=== PATIENT | male | born 1965 | race Caucasian/White ===

== ENCOUNTER 2020-12-04 16:48 | Emergency (ER) | payer OTHER, SELFPAY ==
[2020-12-04 16:50] VITALS: BP 96/60; PULSE 75; RESP 22; TEMP 36.3; O2SAT 94; BMI 32.3
[2020-12-04 17:13] VITALS: BP 96/60; PULSE 75; RESP 18; TEMP 36.3; O2SAT 97
[2020-12-04 17:14] VITALS: O2SAT 97
--- NOTE | 2020-12-04 17:15 | RAD_ITS ---
STUDY: X-RAY CHEST REASON FOR EXAM: Male, 55 years old. COVID. Shortness of breath, cough and dizziness. TECHNIQUE: Single AP portable view of the chest. COMPARISON: None. FINDINGS: The lungs are clear and expanded. There is no demonstrated pleural abnormality. Normal size heart. Normal mediastinum and alisia. Normal visualized pulmonary arteries. Normal visualized aortic arch and descending thoracic aorta. Normal visualized thoracic spine. There is degenerative osteoarthritis of the bilateral shoulders. There is no demonstrated abnormality of the visualized soft tissue structures of the upper abdomen. RAD/Chest 1 View (Portable) IMPRESSION: No acute cardiopulmonary disease. Electronically Signed: Stewart Peoples DO at 17:36 EDT Tel [phone], Service support ,
--- NOTE | 2020-12-04 17:59 | EDS_ITS ---
HPI History of Present Illness Chief Complaint: Cough Narrative Narrative: Patient presenting for evaluation secondary to concerns of coronavirus. Patient states that he is on day 6 of a coronavirus infection. Patient states that he does not have any underlying history of lung disease or comorbid conditions. He states that is been associated with fevers chills cough shortness of breath and some dry heaves. Patient was concerned because he was monitoring his pulse ox at home and it was in the high 80s low 90s, so he is presenting to the emergency department currently. He denies any chest pain denies any hemoptysis. Review of systems otherwise negative. PFSH PFSH Home Medications ondansetron 4 mg PO Q8H PRN PRN #10 tab 12/04/20 [Rx Last Taken Unknown] Allergy/AdvReac Type Severity Reaction Status Date / Time No Known Allergies Allergy Verified 12/04/20 16:49 Social History Smoking Status: Former smoker ROS ROS ED Constitutional Constitutional ED: Reports chills and fever(s) ENT ENT ED: Denies rhinorrhea Cardiovascular Cardiovascular: Denies chest pain Respiratory/Chest Respiratory/Chest: Reports cough and dyspnea Gastrointestinal Gastrointestinal: Reports nausea and vomiting Genitourinary Genitourinary ED: Denies dysuria or hematuria Musculoskeletal Musculoskeletal: Denies back pain Integumentary Denies rash Neurologic Neurologic: Denies paresthesias or weakness Psychiatric Psychiatric: Denies depression Endocrine Endocrinology: Denies fatigue Allergic/Immunologic Allergic/Immunologic ED: Denies urticaria EXAM Physical Exam Const Vital Signs: 12/04/20 16:50 12/04/20 17:13 12/04/20 17:14 Temperature 97.4 F L 97.4 F L Temperature Source Temporal Temporal Pulse Rate 75 75 Respiratory Rate 22 H 18 Respiratory Effort Normal Non-Labored Respiratory Depth Normal Respiratory Pattern Normal Blood Pressure 96/60 96/60 Blood Pressure Mean 72 72 Pulse Ox 94 97 Oxygen Delivery Method Room Air Room Air Room Air Positive well nourished and well developed General Appearance ED: well developed and NAD HEENT Reports moist mucous membranes Negative for trauma or tenderness Eyes EOMs intact bilaterally Neck no lymphadenopathy, supple and no JVD Chest Wall inspection of chest normal Resp normal respiratory effort and clear to auscultation bilaterally Cardio regular rate, regular rhythm, no murmurs and peripheral pulses 2+ throughout GI normal to inspection, nondistended, normoactive bowel sounds, non-tender and no masses Palpation: soft Back/Spine normal to inspection Extremity normal to inspection General Extremety ED: Negative for tenderness Neuro oriented x3 and no sensory deficits noted Sensorium / Orientation: alert Motor Exam: strength 5/5 throughout Psych mental status grossly normal Skin no rashes or lesions noted MDM MDM MDM Narrative Medical decision making narrative: Patient presenting due to concerns for coronavirus. Patient's triage blood pressure was 96/60 I was in his room any had multiple BPs with systolics of 115. His pulse ox has remained in the mid to high 90s throughout his stay in the emergency department. His chest x-ray by my personal review shows bilateral infiltrates consistent with coronavirus. Patient at this point does not require admission and does not meet monoclonal antibody infusion recommendations or require any medical treatment. He was g iven expectant management measures. Patient was discharged in stable condition. Radiography Chest X-Ray - ED: Read by ED Physician, Right Infiltrate and Left Infiltrate Diagnostic Testing: Radiology Impression Chest X-Ray 12/04/20 17:15 IMPRESSION: No acute cardiopulmonary disease. Electronically Signed: Stewart Peoples DO at 17:36 EDT Tel [phone], Service support , Discharge Plan Triage Chief Complaint: Cough ED Provider: Petros Horner Dx/Rx/DC Orders Clinical Impression: COVID Prescriptions: New ondansetron 4 mg tablet,disintegrating 4 mg PO Q8H PRN PRN (Reason: Nausea) Qty: 10 RF: 0 Primary Care Provider: Care Physician,No Primary Referrals: Care Physician,No Primary [Primary Care Provider] - Activity Restrictions/Additional Instructions: Return for low pulse ox or worsening symptoms Disposition Disposition: Home, Self Care
[2020-12-04 18:09] VITALS: BP 127/66; PULSE 71; RESP 16; O2SAT 97
== END 2020-12-04 18:24 | disposition home or self-care (01) ==
LOC: ED 18:05
PROVIDERS: Emergency Provider Emergency Medicine
DX: U07.1 COVID-19 (principal); Z87.891 Personal history of nicotine dependence
CPT/HCPCS: 71045; 99282

== ENCOUNTER 2020-12-07 14:53 | Inpatient (IN) | payer OTHER, SELFPAY ==
[2020-12-07] VITALS (9 sets, daily range): BP systolic 97–130; BP diastolic 53–74; PULSE 70–86; RESP 20–28; TEMP 36.2–37.5; O2SAT 70–99; BMI 35.2; BMI 32.6
--- NOTE | 2020-12-07 14:55 | EKG12_ITS ---
Test Reason : SOB Blood Pressure : / mmHG Vent. Rate : 080 BPM Atrial Rate : 080 BPM P-R Int : 120 ms QRS Dur : 090 ms QT Int : 358 ms P-R-T Axes : 028 051 016 degrees QTc Int : 412 ms Normal sinus rhythm Normal ECG Confirmed by IDANIA BENJAMIN, EDUARD ([id number]), film editor supervisor KUN ESPINAL ([id number]) on 12/10/2020 12:46:32 PM Referred By: BEA Confirmed By:EDUARD EMERSON MD
--- NOTE | 2020-12-07 15:25 | RAD_ITS ---
STUDY: X-RAY CHEST REASON FOR EXAM: Male, 55 years old. Cough TECHNIQUE: Single AP portable view of the chest. COMPARISON: Comparison is made with prior study 12/04/2020. FINDINGS: EKG electrodes are seen. There now is evidence of lateral pulmonary infiltrates worse in the lower lobes. Follow-up is recommended. There is no demonstrated pleural abnormality. Normal size heart. Normal mediastinum and alisia. Normal visualized pulmonary arteries. Normal visualized aortic arch and descending thoracic aorta. There are diffuse degenerative changes of the visualized thoracic spine. Normal visualized ribs, clavicles, and shoulders. There is no demonstrated abnormality of the visualized soft tissue structures of the upper abdomen. RAD/Chest 1 View (Portable) IMPRESSION: Bilateral pulmonary infiltrates worse in the lower lobes. Electronically Signed: Quinton Choi MD at 15:39 EDT , Service support ,
--- NOTE | 2020-12-07 15:26 | ED.VIS.DYS ---
HPI History of Present Illness Chief Complaint: Shortness of Breath Informant: patient Onset/Context/Timing Onset: Days (2) Context: gradual Timing: Continuous Quality: Positive for Wheezing Worsened by: - (Standing) Relieved by: Oxygen Associated Symptoms cough, rhinorrhea, fever and chills; Negative for ear pain, sore throat, clear sputum, white sputum, yellow sputum or green sputum Chest Pain: Positive for None Narrative Narrative: Patient presents with shortness of breath that has been getting worse over the past 2 days. Patient states it is gradually getting worse. Patient states it is worse with standing. Patient states oxygen seem to help with the breathing. Patient tested positive for COVID 1 week ago. Patient was started on prednisone on 11/30/2020. Patient still has 3 tablets of prednisone left in the bottle. Patient has not been vaccinated against COVID-19. Patient admits to a fever of 102.6. Patient admits to a cough but denies any sputum production. Patient admits to some rhinorrhea. Patient admits to some mild chest pain with coughing only. Patient denies any chest pain at rest. [facility] Medical History COVID Home Medications ondansetron 4 mg PO Q8H PRN PRN #10 tab 12/04/20 [Rx Last Taken Unknown] prednisone 50 mg PO DAILY 12/07/20 [History Last Taken Unknown] Allergy/AdvReac Type Severity Reaction Status Date / Time No Known Allergies Allergy Verified 12/07/20 14:59 Social History Smoking Status: Former smoker ROS ROS ED Constitutional Constitutional ED: Reports chills and fever(s) Eyes Eyes: Reports blurry vision; Denies change in vision ENT ENT ED: Denies rhinorrhea or sore throat Cardiovascular Cardiovascular: Denies chest pain or palpitations Respiratory/Chest Respiratory/Chest: Reports cough and dyspnea Gastrointestinal Gastrointestinal: Reports nausea; Denies vomiting Genitourinary Genitourinary ED: Denies dysuria or hematuria Musculoskeletal Musculoskeletal: Denies back pain or neck pain Integumentary Reports rash; Denies abscess Neurologic Neurologic: Denies headache(s) or weakness Allergic/Immunologic Allergic/Immunologic ED: Denies mouth swelling or urticaria EXAM Physical Exam Const Vital Signs: 12/07/20 14:55 12/07/20 15:14 12/07/20 15:51 Temperature 99.5 F H Temperature Source Oral Pulse Rate 84 85 Respiratory Rate 26 H 20 H Respiratory Effort Short of Breath Labored Respiratory Pattern Tachypnea Blood Pressure 129/61 H 130/67 H Blood Pressure Mean 83 88 Pulse Ox 70 96 94 Oxygen Delivery Method Room Air Non-Rebreather Non-Rebreather Oxygen Flow Rate (L/min) 7 15 Positive well nourished and well developed General Appearance ED: well developed HEENT Reports moist mucous membranes Neck no lymphadenopathy and supple Resp normal respiratory effort Auscultation: rales bilateral Cardio regular rate, regular rhythm and no murmurs GI normal to inspection, nondistended, normoactive bowel sounds, non-tender and non-distended Auscultation: normoactive bowel sounds Palpation: soft Extremity normal to inspection General Extremety ED: Negative for edema or tenderness General Extremity: Negative for edema Neuro oriented x3, CN's II-XII intact bilaterally and no sensory deficits noted Sensorium / Orientation: alert Motor Exam: strength 5/5 throughout Psych mental status grossly normal Skin no rashes or lesions noted MDM MDM MDM Narrative Medical decision making narrative: Patient was given a dose of Tylenol. Patient was given 6 puffs of an albuterol inhaler. CBC was within normal limits. Comprehensive metabolic profile showed a potassium of 3.1. Creatinine was 1.63. Lactate was 2.1. Patient was given a dose of oral potassium here. Patient was given a dose of Decadron. COVID-19 PCR was ordered and is positive. Portable chest x-ray was obtained. There is 1 view. On my interpretation, there are bilateral lower lobe infiltrates that are worse compared to previous x-ray on 12/04/2020. Blood cultures were obtained. Case was discussed with the hospitalist. He will admit the patient to ICU. Patient understood and was agreeable with the plan. All questions were answered. Lab Data Attestation: I reviewed the patient's lab results. Labs: Laboratory Results - last 24 hr 12/07/20 12/07/20 12/07/20 15:05 15:05 15:05 WBC 8.0 RBC 5.21 Hgb 15.8 Hct 45.0 MCV 86.4 MCH 30.3 MCHC 35.1 RDW Std Deviation 39.6 RDW Coeff of Demetrio 12.6 Plt Count 303 MPV 10.1 Immature Gran % (Auto) 0.900 Neut % (Auto) 84.0 H Lymph % (Auto) 10.2 L [place] % (Auto) 4.8 Eos % (Auto) 0.0 Baso % (Auto) 0.1 Absolute Neuts (auto) 6.7 Absolute Lymphs (auto) 0.81 L Nucleated RBC % 0 Sodium 136 Potassium 3.1 L Chloride 99 Carbon Dioxide 30.0 Anion Gap 7 BUN 37 H Creatinine 1.63 H Estim Creat Clear Calc 46.75 Est GFR (MDRD) Af Amer 57 L Est GFR (MDRD) Non-Af 47 L BUN/Creatinine Ratio 22.7 H Glucose 121 H Lactic Acid 2.1 H* Calcium 9.0 Total Bilirubin 0.40 AST 76 H ALT 50 Alkaline Phosphatase 39 L Total Protein 8.3 H Albumin 3.2 Globulin 5.1 H Albumin/Globulin Ratio 0.6 L COVID-19 ([facility]) 12/07/20 16:00 WBC RBC Hgb Hct MCV MCH MCHC RDW Std Deviation RDW Coeff of Demetrio Plt Count MPV Immature Gran % (Auto) Neut % (Auto) Lymph % (Auto) [place] % (Auto) Eos % (Auto) Baso % (Auto) Absolute Neuts (auto) Absolute Lymphs (auto) Nucleated RBC % Sodium Potassium Chloride Carbon Dioxide Anion Gap BUN Creatinine Estim Creat Clear Calc Est GFR (MDRD) Af Amer Est GFR (MDRD) Non-Af BUN/Creatinine Ratio Glucose Lactic Acid Calcium Total Bilirubin AST ALT Alkaline Phosphatase Total Protein Albumin Globulin Albumin/Globulin Ratio COVID-19 ([facility]) Positive Radiography Chest X-Ray - ED: 1 View, Read by ED Physician, Read by Radiologist, Right Infiltrate and Left Infiltrate Diagnostic Testing: Radiology Impression Chest X-Ray 12/07/20 15:25 IMPRESSION: Bilateral pulmonary infiltrates worse in the lower lobes. Electronically Signed: Quinton Choi MD at 15:39 EDT , Service support , EKG Initial EKG: Attestation: I personally reviewed and interpreted this EKG as follows: Interpretation: Sinus Rhythm (80) and No Acute Injury Pattern Prior EKG tracings: not available for review Treatment and Re-Evaluation Vital Sign Attestation:: Vital signs were reviewed prior to admission. They are stable. Discharge Plan Dx/Rx/DC Orders Clinical Impression: Pneumonia due to COVID-19 virus, Hypoxia, Acidosis, lactic Disposition Disposition: Acute Care [facility]
[2020-12-07] MEDS: Acetaminophen 500 MG Tablet 1000 MG PO (15:51)
[2020-12-07 15:54] LABS: Absolute Lymphocyte Count 0.81 X10^3/uL (0.83-4.51); Absolute Neutrophil Count 6.7 X10^3/uL (2.0-7.7); Basophil# 0.01 X10^3/uL; Basophil% 0.1 % (0-1); Hemoglobin 15.8 g/dL (13.0-16.5); Lymphocyte # 0.81 X10^3/ul (0.83-4.51); Lymphocyte % 10.2 % (19-41); Mean Corp Hgb Conc 35.1 g/dL (32-36); Mean Corpuscular Hgb 30.3 pg (27.0-32.0); Mean Corpuscular Volume 86.4 fL (80-94); Mean Platelet Vol. 10.1 fl (6.2-12.0); Monocyte# 0.38 X10^3/uL; Monocyte% 4.8 % (0-10); NRBC Flagged by Analyzer 0 % (0-5); Neutrophil # 6.71 X10^3/uL (2.7-7.7); Platelet Count 303 K/mm3 (150-450); RBC Distribution Width CV 12.6 % (11.6-14.6); RBC Distribution Width SD 39.6 fl (35.1-43.9); Red Blood Count 5.21 M/mm3 (4.6-6.2)
[2020-12-07 16:03] LABS: ALB/GLOB Ratio 0.6 RATIO (0.9-2.4); AST(SGOT) 76 U/L (15-37); Alanine Aminotransfer ALT/SGPT 50 U/L (16-61); Albumin, Serum 3.2 g/dL (3.2-5.0); Alkaline Phosphatase 39 U/L (45-117); Anion Gap 7 (5-15); BUN 37 mg/dL (7-18); BUN/Creat Ratio 22.7 RATIO (10-20); Chloride 99 mmol/L (98-107); Creatinine, Serum 1.63 mg/dL (0.70-1.30); EST Glomerular Filtration Rate 47 mL/min (>60); Est Glom Filt Rate - Afr Amer 57 mL/min (>60); Estimated Creatinine Clearance 46.75 ml/min; Globulin 5.1 g/dL (2.2-4.2); Glucose 121 mg/dL (74-106); Potassium 3.1 mmol/L (3.5-5.1); Protein, Total 8.3 g/dL (6.4-8.2); Sodium Level 136 mmol/L (136-145)
[2020-12-07 16:06] LABS: Lactic Acid 2.1 mmol/L (0.4-1.9)
[2020-12-07] MEDS: Potassium Chloride Oral Tablet 20 MEQ 40 MEQ PO (16:46)
[2020-12-07 16:49] LABS: Probe Check PASS; Specimen Processing Control PASS
[2020-12-07] MEDS: dexAMETHasone 4 MG/ML Vial 6 MG IV (17:14)
--- NOTE | 2020-12-07 17:46 | PCM.HP.STD ---
HPI - General General Date of Admission: 12/07/20 HPI Narrative CHHAYA MORENO, is a 55 M with no significant past medical history came to ER for worsening shortness of breath. He tested positive of Covid on 09/29. Patient symptoms started on the same day with cough, low-grade fever. Patient was febrile when he went for work. Patient was seen in the ED on 12/04 and his pulse ox at home was in the high 80s and low 90s and was discharged. Chest x-ray showed bilateral infiltrates suggestive of viral pneumonia. 2-3 days ago patient said his pulse ox was 89% but today it was in low 80s and in the ER noted 70% and put on 7 L and currently 94% on nonrebreather oxygen. Patient denies any chest pain or tightness. Denies prior chronic lung disease, smoking history or chronic heart disease. Patient has mild nausea, loss of appetite and has not eaten good for last 7 days. Chest x-ray shows bilateral pulmonary infiltrates worse on the lower lobes. Twelve-lead EKG shows normal sinus diminutive beats. QTc 412 ms. [facility] Medical History COVID Home Medications ondansetron 4 mg PO Q8H PRN PRN #10 tab 12/04/20 [Rx Last Taken Unknown] prednisone 50 mg PO DAILY 12/07/20 [History Last Taken Unknown] Allergy/AdvReac Type Severity Reaction Status Date / Time No Known Allergies Allergy Verified 12/07/20 14:59 Social History Smoking Status: Former smoker ROS ROS Narrative Constitutional: Reports fatigue and weakness and loss of energy HEENT: Reports systems reviewed and no addt'l complaints, except as documented Respiratory/Chest: As reported in HPI Gastrointestinal: Denies coffee ground emesis, hematemesis or vomiting. Mild nausea Genitourinary: Denies burning urination or new urinary tract symptoms Musculoskeletal: Does not report joint pain and limited range of motion Neurologic: Denies seizure-like activity skin: Rash in the groin Endocrinology: Reports systems reviewed and no addt'l complaints, except as documented Hematologic/Lymphatic: Reports systems reviewed and no addt'l complaints, except as documented Rest 12 ROS are negative except as mentioned in HPI Vital Signs Vital Signs Vital Signs: 12/07/20 14:55 12/07/20 15:14 12/07/20 15:51 Temperature 99.5 F H Temperature Source Oral Pulse Rate 84 85 Respiratory Rate 26 H 20 H Respiratory Effort Short of Breath Labored Respiratory Pattern Tachypnea Blood Pressure 129/61 H 130/67 H Blood Pressure Mean 83 88 Pulse Ox 70 96 94 Oxygen Delivery Method Room Air Non-Rebreather Non-Rebreather Oxygen Flow Rate (L/min) 7 15 12/07/20 17:14 Temperature 98 F Temperature Source Temporal Pulse Rate 86 Respiratory Rate 24 H Respiratory Effort Respiratory Pattern Blood Pressure 120/70 Blood Pressure Mean 86 Pulse Ox 93 Oxygen Delivery Method Non-Rebreather Oxygen Flow Rate (L/min) Weight Weight: 217 lb 13.067 oz Body Mass Index (BMI) 35.2 Physical Exam Narrative General: Alert, Oriented x3, Cooperative HEENT: Atraumatic, PERRLA, EOMI, Normocephalic Oral: No Gingival or Mucosal Lesions/ Ulcerations Neck: Supple, No JVD, Negative Carotid Bruits Lungs: Air entry diminished in both lungs. Bilateral lower lobe crepitation present. Severe hypoxia and tachypnea. Cardiovascular: Regular rate, Regular Rhythm, Normal S1, Normal S2, No murmurs Abdomen: Bowel Sounds Present, Soft, Non Tender, Non-Distended : No renal angle tenderness. No suprapubic tenderness. Extremities: No edema, Capillary Refill Less than 3 Seconds Skin: Bilateral inguinal region rash, tinea infection Musculoskeletal: No Tenderness to Palpation of Joints or Extremities Neurological: Cranial nerves II-XII grossly intact, DTR 2+/4 and Symmetrical, Neuro grossly intact Psych/Mental Status: Normal Affect, Appropriate. Results Lab / Micro Data Result Diagrams: 12/07/20 15:05 12/07/20 15:05 Labs: Laboratory Results - last 24 hr 12/07/20 15:05: WBC 8.0, RBC 5.21, Hgb 15.8, Hct 45.0, MCV 86.4, MCH 30.3, MCHC 35.1, RDW Std Deviation 39.6, RDW Coeff of Demetrio 12.6, Plt Count 303, MPV 10.1, Immature Gran % (Auto) 0.900, Neut % (Auto) 84.0 H, Lymph % (Auto) 10.2 L, [place] % (Auto) 4.8, Eos % (Auto) 0.0, Baso % (Auto) 0.1, Absolute Neuts (auto) 6.7, Absolute Lymphs (auto) 0.81 L, Nucleated RBC % 0 12/07/20 15:05: Sodium 136, Potassium 3.1 L, Chloride 99, Carbon Dioxide 30.0, Anion Gap 7, BUN 37 H, Creatinine 1.63 H, Estim Creat Clear Calc 46.75, Est GFR (MDRD) Af Amer 57 L, Est GFR (MDRD) Non-Af 47 L, BUN/Creatinine Ratio 22.7 H, Glucose 121 H, Calcium 9.0, Total Bilirubin 0.40, AST 76 H, ALT 50, Alkaline Phosphatase 39 L, Total Protein 8.3 H, Albumin 3.2, Globulin 5.1 H, Albumin/Globulin Ratio 0.6 L 12/07/20 15:05: Lactic Acid 2.1 H* 12/07/20 16:00: COVID-19 ([facility]) Positive Radiology Impression Chest X-Ray 12/07/20 15:25 IMPRESSION: Bilateral pulmonary infiltrates worse in the lower lobes. Electronically Signed: Quinton Choi MD at 15:39 EDT , Service support , Assessment & Plan Assessment/Plan (1) Pneumonia due to COVID-19 virus: PLAN: CHHAYA MORENO, is a 55 M is being admitted with bilateral COVID-19 pneumonia 1. Acute hypoxic respiratory failure with severe sepsis (tachypnea, severe hypoxia, lactic acidosis) secondary to bilateral COVID-19 pneumonia: Patient is being admitted in ICU on airVo to keep pulse ox more than 92%. Titrate up to noninvasive pressure ventilation if needed. Started on IV Decadron and remdesivir. Inflammatory markers ordered. Pneumonia work-up ordered along with blood count. ID consult for baricitinib. Engineering Administrator consult. Severe sepsis protocol 30 mils per KG IV fluid boluses. Lovenox 30 mg subcu twice daily 2. Bilateral inguinal region seems tinea cruris: Patient is started on miconazole topical cream. 3. History of hypertension: Currently blood pressure is normal. 4. VTE prophylaxis: Discontinue if platelet count drops less than 50,000 or hemoglobin less than 8 g% Living will/advanced directive/end of life care: Patient does not have living will or advanced directive. His is next to kin. After discussion of benefits/risks procedures involved with full code, DNR CC arrest and DNR CC, the patient not interested in going detail does not want to come in now. He said he will talk later on but wanted all noninvasive method tried first and not happy with the mention of intubation/ventilator as last ditch effort. By default, will keep full code. Total time spent in [id number] encounter in discussion of advanced directive 16 minutes. Laboratory Results 12/07/20 15:05: WBC 8.0, RBC 5.21, Hgb 15.8, Hct 45.0, MCV 86.4, MCH 30.3, MCHC 35.1, RDW Std Deviation 39.6, RDW Coeff of Demetrio 12.6, Plt Count 303, MPV 10.1, Immature Gran % (Auto) 0.900, Neut % (Auto) 84.0 H, Lymph % (Auto) 10.2 L, [place] % (Auto) 4.8, Eos % (Auto) 0.0, Baso % (Auto) 0.1, Absolute Neuts (auto) 6.7, Absolute Lymphs (auto) 0.81 L, Nucleated RBC % 0 12/07/20 15:05: Sodium 136, Potassium 3.1 L, Chloride 99, Carbon Dioxide 30.0, Anion Gap 7, BUN 37 H, Creatinine 1.63 H, Estim Creat Clear Calc 46.75, Est GFR (MDRD) Af Amer 57 L, Est GFR (MDRD) Non-Af 47 L, BUN/Creatinine Ratio 22.7 H, Glucose 121 H, Calcium 9.0, Total Bilirubin 0.40, AST 76 H, ALT 50, Alkaline Phosphatase 39 L, Total Protein 8.3 H, Albumin 3.2, Globulin 5.1 H, Albumin/Globulin Ratio 0.6 L 12/07/20 15:05: Lactic Acid 2.1 H* 12/07/20 16:00: COVID-19 ([facility]) Positive Charges/Coding Visit Charges Inpatient E&M: 41587 Init Hosp L3 Procedures Hospitalists Procedures: [id number] Advncd Care Plan 30 Min
[2020-12-07 19:37] LABS: Reflex Lactate? Y
[2020-12-07] MEDS: 0.9% Normal Saline 1,000 ML 100 ML IV (20:28)
[2020-12-07] MEDS: Enoxaparin 30 MG/0.3 ML Syringe SC (20:31)
[2020-12-07 21:32] LABS: Lactic Acid 1.5 mmol/L (0.4-1.9)
[2020-12-07 22:29] LABS: International Normalized Ratio 1.1; Prothrombin Time (Protime)PT. 13.1 SECONDS (11.7-14.9)
[2020-12-07 22:30] LABS: Partial Thromboplast Time 32.2 Seconds (24.1-36.2)
[2020-12-07 22:35] LABS: Fibrinogen 758 mg/dl (203-444)
[2020-12-07 22:41] LABS: BNP,B-Type NATRIURETIC PEPTIDE 72.3 pg/mL (0-100)
[2020-12-07 22:43] LABS: ALB/GLOB Ratio 0.6 RATIO (0.9-2.4); AST(SGOT) 65 U/L (15-37); Alanine Aminotransfer ALT/SGPT 46 U/L (16-61); Albumin, Serum 2.8 g/dL (3.2-5.0); Alkaline Phosphatase 33 U/L (45-117); Anion Gap 6 (5-15); BUN 39 mg/dL (7-18); BUN/Creat Ratio 27.1 RATIO (10-20); Bilirubin, Direct 0.15 mg/dL (0.00-0.30); Calcium,Total 8.5 mg/dL (8.5-10.1); Chloride 103 mmol/L (98-107); Creatinine, Serum 1.44 mg/dL (0.70-1.30); EST Glomerular Filtration Rate 54 mL/min (>60); Est Glom Filt Rate - Afr Amer 66 mL/min (>60); Estimated Creatinine Clearance 52.92 ml/min; Globulin 4.7 g/dL (2.2-4.2); Glucose 160 mg/dL (74-106); LDH 654 U/L (87-241); Magnesium 2.7 mg/dL (1.6-2.6); Potassium 3.4 mmol/L (3.5-5.1); Protein, Total 7.5 g/dL (6.4-8.2); Sodium Level 137 mmol/L (136-145)
[2020-12-07 22:45] LABS: CPK Total, Creatine Kinase 335 U/L (39-308)
[2020-12-07 22:47] LABS: D-Dimer Quantitative (DVT/PE) 1.26 FEU/ug/m (0.27-0.49)
[2020-12-07 22:49] LABS: Procalcitonin 0.24 ng/mL (0.00-0.09)
[2020-12-08] VITALS (22 sets, daily range): BP systolic 99–133; BP diastolic 53–89; PULSE 65–94; RESP 16–30; TEMP 36.4–37.1; O2SAT 87–96
[2020-12-08] MEDS: Miconazole Nitrate Cream 1 APPLIC TOPICAL ×2 (00:02→08:13)
--- NOTE | 2020-12-08 00:05 | CT_ITS ---
STUDY: CTA CHEST REASON FOR EXAM: Male, 55 years old. Shortness of breath, suspect PE RADIATION DOSAGE (If Supplied By Facility): CTDIvol = ( 13.19 ) mGy, DLP = ( 542.52 ) mGycm TECHNIQUE: The examination was performed with the intravenous administration of IV 100mL [id number]-300. Post-processing of the angiographic images was performed, with multiplanar reformation and 3D reconstruction. Individualized dose optimization techniques were used for this CT. COMPARISON: None. FINDINGS: No filling defect in the pulmonary arteries to suggest pulmonary embolism. Intact thoracic aorta. Shotty subcentimeter mediastinal lymph nodes, nonspecific and likely reactive. Mild cardiomegaly. No pericardial or pleural effusion. No pneumothorax. Extensive groundglass densities throughout the bilateral lungs, compatible with Covid 19 pneumonia. Sections through the upper abdomen demonstrate marked diffuse hepatic steatosis. Mild multilevel thoracic spondylosis. Old compression deformity of the superior endplate of L1. CT/CTA Chest W/WO Contrast IMPRESSION: No evidence of pulmonary embolism. Extensive multifocal Covid 19 pneumonia bilaterally. Mild cardiomegaly. Diffuse hepatic steatosis. Electronically Signed: Frantz Cedeno MD at 2:46 EDT Tel , Service support ,
[2020-12-08] MEDS: Acetaminophen 325 MG Tablet 650 MG PO ×5 (04:49→22:41)
[2020-12-08 04:57] LABS: Absolute Lymphocyte Count 0.54 X10^3/uL (0.83-4.51); Absolute Neutrophil Count 4.7 X10^3/uL (2.0-7.7); Basophil# 0.01 X10^3/uL; Basophil% 0.2 % (0-1); Hematocrit 40.1 % (40-54); Hemoglobin 13.8 g/dL (13.0-16.5); Lymphocyte # 0.54 X10^3/ul (0.83-4.51); Lymphocyte % 9.6 % (19-41); Mean Corp Hgb Conc 34.4 g/dL (32-36); Mean Corpuscular Hgb 30.2 pg (27.0-32.0); Mean Corpuscular Volume 87.7 fL (80-94); Mean Platelet Vol. 9.6 fl (6.2-12.0); Monocyte# 0.33 X10^3/uL; Monocyte% 5.9 % (0-10); NRBC Flagged by Analyzer 0 % (0-5); Neutrophil # 4.69 X10^3/uL (2.7-7.7); Neutrophil % 83.4 % (47-70); POSITIVE DIFFERENTIAL YES; Platelet Count 290 K/mm3 (150-450); RBC Distribution Width CV 12.5 % (11.6-14.6); RBC Distribution Width SD 40.2 fl (35.1-43.9); Red Blood Count 4.57 M/mm3 (4.6-6.2); White Blood Count 5.6 K/mm3 (4.4-11.0)
[2020-12-08 05:10] LABS: Differential Indicated SCAN CRITERIA MET
[2020-12-08 05:29] LABS: ALB/GLOB Ratio 0.5 RATIO (0.9-2.4); AST(SGOT) 59 U/L (15-37); Alanine Aminotransfer ALT/SGPT 44 U/L (16-61); Albumin, Serum 2.4 g/dL (3.2-5.0); Alkaline Phosphatase 33 U/L (45-117); Anion Gap 6 (5-15); BUN 34 mg/dL (7-18); BUN/Creat Ratio 30.4 RATIO (10-20); Chloride 104 mmol/L (98-107); Creatinine, Serum 1.12 mg/dL (0.70-1.30); EST Glomerular Filtration Rate 72 mL/min (>60); Est Glom Filt Rate - Afr Amer 88 mL/min (>60); Estimated Creatinine Clearance 68.04 ml/min; Globulin 4.5 g/dL (2.2-4.2); Glucose 170 mg/dL (74-106); Potassium 3.7 mmol/L (3.5-5.1); Protein, Total 6.9 g/dL (6.4-8.2); Sodium Level 137 mmol/L (136-145)
[2020-12-08] MEDS: 0.9% Normal Saline 1,000 ML 100 ML IV ×2 (06:22→19:55)
--- NOTE | 2020-12-08 06:57 | EX.PCM.CONCC ---
Assessment & Plan Assessment/Plan (1) Pneumonia due to COVID-19 virus: PLAN: RECOMMENDATIONS: 1. Wean supplemental oxygen to maintain saturations at or above 90%. 2. Stop continuous IV fluids. 3. Continue remdesivir to complete 5-day treatment course. Continue to monitor liver and renal function. 4. Continue Decadron to complete 10-day treatment course. 5. Continue Lovenox twice daily. 6. Continue baricitinib per ID recommendations. 7. Awake prone positioning was encouraged. 8. As needed use of diuretics to maintain euvolemic state. IMPRESSIONS: 1. Acute hypoxemic respiratory failure secondary to COVID-19 pneumonia The patient initially presented with progressive symptoms which began on the of the month. Although the patient was initially requiring a nonrebreather, he has been weaned to nasal cannula supplemental oxygen as of this morning. The patient will be continued on remdesivir to complete a 5-day treatment course. In addition, Decadron to complete 10 days of therapy will also be continued. After discussing with infectious diseases, the patient was started on baricitinib. Lovenox twice daily will be continued. As needed use of diuretics can be entertained to maintain euvolemic state. Encourage incentive spirometer use and mobilize patient as tolerated. Awake prone positioning was encouraged. This note was generated with [employer] dictation software. It may contain incorrect words, spelling, and punctuation that were not noted in checking the note before signing. HPI Consult Data Date of Consult: 12/09/20 HPI Narrative Reason for Consultation: Acute hypoxemic respiratory failure secondary to COVID-19 pneumonia HPI Narrative: The patient is a 55-year-old male, with a history as outlined below, who presented to the emergency department on December 07 with worsening shortness of breath, cough and fever. The patient's symptoms initially began on the . He later tested positive for coronavirus the same day. The patient is unvaccinated. He was treated as an outpatient with prednisone. On presentation to the emergency department, the patient was noted to have a low-grade fever but was otherwise hemodynamically stable. Laboratory evaluation revealed no evidence of a leukocytosis. D-dimer was noted to be 1.26. Chemistry profile was notable for a potassium of 3.1, creatinine of 1.63 and lactate of 2.1. CRP was elevated at 119. CTA chest showed no evidence for pulmonary embolism. However, extensive groundglass airspace opacities were noted bilaterally. The patient was started on supplemental IV fluid hydration along with remdesivir, Decadron and Lovenox. In addition, baricitinib was initiated by infectious diseases. The patient was subsequently admitted to the medical intensive care unit for further management. [facility] Medical History COVID Home Medications ondansetron 4 mg PO Q8H PRN PRN #10 tab 12/04/20 [Rx Last Taken Unknown] prednisone 50 mg PO DAILY 12/07/20 [History Last Taken Unknown] Allergy/AdvReac Type Severity Reaction Status Date / Time No Known Allergies Allergy Verified 12/07/20 14:59 Social History Smoking Status: Former smoker ROS Constitutional Constitutional: Reports fatigue and malaise Eyes Eyes: Denies blurry vision or change in vision ENT HEENT: Denies headache(s) or loss taste/smell Cardiovascular Cardiovascular: Reports dyspnea Respiratory/Chest Respiratory/Chest: Reports cough and dyspnea Gastrointestinal Gastrointestinal: Denies abdominal pain, diarrhea, nausea or vomiting Genitourinary Genitourinary: Denies difficulty urinating or dysuria Musculoskeletal Musculoskeletal: Denies arthralgias or back pain Integumentary Integumentary: Denies lesions, rash or skin ulcer Neurologic Neurologic: Denies abnormal gait, abnormal speech or confusion Psychiatric Psychiatric: Denies anxiety or depression Endocrine Endocrinology: Reports fatigue Hematologic/Lymphatic Hematologic/Lymphatic: Denies easy bleeding or easy bruising Physical Exam Const alert General Appearance: cooperative Nutritional Appearance: obese HEENT normocephalic, head/scalp atraumatic and moist oral mucous membranes Eyes PERRL, EOMs intact bilaterally and conjunctivae normal Neck supple General: trachea midline Chest inspection of chest normal Resp No no use of accessory muscles Effort and Inspection: tachypneic Auscultation: diminished lung sounds; Negative for rales, rhonchi or wheezes Cardio regular rate and regular rhythm GI normal to inspection, nondistended, normoactive bowel sounds Extremity no clubbing, cyanosis or edema Skin no rashes or lesions noted Neuro CN's II-XII intact bilaterally, moves all extremities and no focal motor deficits Psych cooperative and affect normal Lab / Micro Data Result Diagrams: 12/08/20 04:50 12/08/20 04:50 Labs: Laboratory Results - last 24 hr 12/07/20 15:05: WBC 8.0, RBC 5.21, Hgb 15.8, Hct 45.0, MCV 86.4, MCH 30.3, MCHC 35.1, RDW Std Deviation 39.6, RDW Coeff of Demetrio 12.6, Plt Count 303, MPV 10.1, Immature Gran % (Auto) 0.900, Neut % (Auto) 84.0 H, Lymph % (Auto) 10.2 L, Mobile % (Auto) 4.8, Eos % (Auto) 0.0, Baso % (Auto) 0.1, Absolute Neuts (auto) 6.7, Absolute Lymphs (auto) 0.81 L, Nucleated RBC % 0 12/07/20 15:05: Sodium 136, Potassium 3.1 L, Chloride 99, Carbon Dioxide 30.0, Anion Gap 7, BUN 37 H, Creatinine 1.63 H, Estim Creat Clear Calc 46.75, Est GFR (MDRD) Af Amer 57 L, Est GFR (MDRD) Non-Af 47 L, BUN/Creatinine Ratio 22.7 H, Glucose 121 H, Calcium 9.0, Total Bilirubin 0.40, AST 76 H, ALT 50, Alkaline Phosphatase 39 L, Total Protein 8.3 H, Albumin 3.2, Globulin 5.1 H, Albumin/Globulin Ratio 0.6 L 12/07/20 15:05: Lactic Acid 2.1 H* 12/07/20 16:00: COVID-19 (SONJA) Positive 12/07/20 19:45: Lactic Acid 1.5 12/07/20 20:45: PT 13.1, INR 1.1, APTT 32.2, Fibrinogen 758 H, D-Dimer Quant (PE/DVT) Cancelled 12/07/20 20:45: Sodium 137, Potassium 3.4 L, Chloride 103, Carbon Dioxide 28.0, Anion Gap 6, BUN 39 H, Creatinine 1.44 H, Estim Creat Clear Calc 52.92, Est GFR (MDRD) Af Amer 66, Est GFR (MDRD) Non-Af 54 L, BUN/Creatinine Ratio 27.1 H, Glucose 160 H, Calcium 8.5, Magnesium 2.7 H, Total Bilirubin 0.30, Direct Bilirubin 0.15, AST 65 H, ALT 46, Alkaline Phosphatase 33 L, Lactate Dehydrogenase 654 H, C-React Prot Ext Range 119.00 H, Total Protein 7.5, Albumin 2.8 L, Globulin 4.7 H, Albumin/Globulin Ratio 0.6 L 12/07/20 20:45: Total Creatine Kinase 335 H 12/07/20 20:45: B-Natriuretic Peptide 72.3 12/07/20 20:45: Procalcitonin 0.24 H 12/07/20 22:19: D-Dimer Quant (PE/DVT) 1.26 H* 12/08/20 04:50: WBC 5.6, RBC 4.57 L, Hgb 13.8, Hct 40.1, MCV 87.7, MCH 30.2, MCHC 34.4, RDW Std Deviation 40.2, RDW Coeff of Demetrio 12.5, Plt Count 290, MPV 9.6, Immature Gran % (Auto) 0.900, Neut % (Auto) 83.4 H, Lymph % (Auto) 9.6 L, [place] % (Auto) 5.9, Eos % (Auto) 0.0, Baso % (Auto) 0.2, Absolute Neuts (auto) 4.7, Absolute Lymphs (auto) 0.54 L, Nucleated RBC % 0 12/08/20 04:50: Sodium 137, Potassium 3.7, Chloride 104, Carbon Dioxide 27.0, Anion Gap 6, BUN 34 H, Creatinine 1.12, Estim Creat Clear Calc 68.04, Est GFR (MDRD) Af Amer 88, Est GFR (MDRD) Non-Af 72, BUN/Creatinine Ratio 30.4 H, Glucose 170 H, Calcium 8.0 L, Total Bilirubin 0.30, AST 59 H, ALT 44, Alkaline Phosphatase 33 L, Total Protein 6.9, Albumin 2.4 L, Globulin 4.5 H, Albumin/Globulin Ratio 0.5 L Radiology Impression Chest X-Ray 12/07/20 15:25 IMPRESSION: Bilateral pulmonary infiltrates worse in the lower lobes. Electronically Signed: Quinton Choi MD at 15:39 EDT , Service support , Chest CTA 12/08/20 00:05 IMPRESSION: No evidence of pulmonary embolism. Extensive multifocal Covid 19 pneumonia bilaterally. Mild cardiomegaly. Diffuse hepatic steatosis. Electronically Signed: Frantz Cedeno MD at 2:46 EDT Tel , Service support , Charges/Coding Visit Charges Inpatient E&M: 43314 Init Hosp L3
[2020-12-08] MEDS: dexAMETHasone 10 MG/ML Vial 6 MG IV (08:12)
[2020-12-08] MEDS: Enoxaparin 30 MG/0.3 ML Syringe SC ×2 (08:13→19:55)
--- NOTE | 2020-12-08 11:00 | CASEMGMT ---
Addendum entered by Lexus Rae 12/08/20 13:49: Pt states is doing fine with COVID dx and he tested positive for COVID at [facility] urgent care. Pt states he is not vaccinated and states no concerns getting groceries/resources once home. Alexys VELARDE CM Original Note: SYD DE SANTIAGO Assessment: Initial transition planning/care coordination assessment. SYD DE SANTIAGO introduced self and role at [facility], pt voices understanding and consents to assessment. Pt is A/Ox4 and answers all questions appropriately. Pt is currently on 14L nc but is able to speak in full sentences. Pt is independent in room. Care providers, pharmacy, and demographics verified. Presentation: Increased SOB and tested COVID + 7 days ago Admitting dx: COVID 19 PCP: List provided to pt per request Specialists: Pt states no specialists. Preferred Pharmacy: [facility] Insurance: [employer] Prescription Benefit: [employer] Living Will/HPOA: Pt states does not have LW/HPOA but is agreeable to AD info at this time. AD info provided. LNOK: Qi Mason, Living Arrangements: Pt states lives with and sons in home and states no concerns at home. Pt states is independent with ADL's. Transportation: Pt states drives self and states no transportation concerns. DME/HHC: Pt states no current DME or need for any DME. Pt states no preference for DME company, if qualifies for home oxygen at discharge. Pt states no hx of HHC or SNF. Pt states no concerns with going home at time of discharge. Pt works info specialist. Pt states does not smoke cigarettes or drink ETOH. Pt states no further concerns/needs. CM to follow for home oxygen testing and any further discharge planning/needs. Advised pt to ask for CM if any further questions/concerns/needs arise, voices understanding. Pt Goal: Home Plan: Home, pending home oxygen testing. Alexys VELARDE CM
[2020-12-08 12:08] LABS: Bacteria 0 SEEN /hpf (None Seen); Mucous, Urine 0 SEEN /hpf (<or=2+); Red Blood Cells-Urine 0 SEEN /hpf (0-5); Squamous Epithelial Cells - UA 0 SEEN /hpf (0-5); White Blood Cells 0 SEEN /hpf (0-5)
[2020-12-08 12:10] LABS: Color, Urine Yellow (Yellow); Glucose, Dipstick Normal (Normal); Ketone-Dipstick Negative (Negative); Leukocyte Esterase-Dipstick Negative /ul (Negative); Nitrite-Dipstick Negative (Negative); Occult Blood-Urine Negative /ul (Negative); Protein-Dipstick 30 mg/dl (Negative); Specific Gravity, Urine 1.015 (1.002-1.030); Urine Bilirubin Dipstick Negative (Negative); Urine Clarity Clear (Clear); Urine Urobilinogen Normal (Normal); Urine pH 6.5 (5.0 - 8.0)
--- NOTE | 2020-12-08 13:34 | PCS.PANDOC ---
PANDEMIC DOCUMENTATION INITIATED: Date: 10/29/2020 Time: 190
[2020-12-08 14:27] LABS: M R Staph aureus DNA By PCR Negative (Negative); Probe Check PASS; Specimen Processing Control PASS
--- NOTE | 2020-12-08 17:32 | PCM.PN.HOSP ---
Subjective Subjective Patient was seen and examined today, he appeared stable to move out to PCU, at the time of my dictation this afternoon, patient is on 10 L via nasal cannula. Objective Data Objective Data Vital Signs: Vital Signs Temp Pulse Resp BP Pulse Ox 98.7 F 74 18 119/69 92 12/08/20 15:40 12/08/20 15:40 12/08/20 15:40 12/08/20 15:40 12/08/20 15:40 Oxygen Flow Rate (L/min) 10 Oxygen Delivery Method Nasal Cannula Weight: 91.9 kg Body Mass Index (BMI) 32.6 Intake & Output: Intake and Output for Last 24 Hours 12/06/20 12/07/20 12/08/20 23:59 23:59 23:59 Intake Total 250 / 250 1818.33 / 1818.33 Output Total 800 / 800 Balance 250 / 250 1018.33 / 1018.33 Lab / Micro Data Result Diagrams: 12/08/20 04:50 12/08/20 04:50 Labs: Laboratory Results - last 24 hr 12/07/20 19:45: Lactic Acid 1.5 12/07/20 20:45: PT 13.1, INR 1.1, APTT 32.2, Fibrinogen 758 H, D-Dimer Quant (PE/DVT) Cancelled 12/07/20 20:45: Sodium 137, Potassium 3.4 L, Chloride 103, Carbon Dioxide 28.0, Anion Gap 6, BUN 39 H, Creatinine 1.44 H, Estim Creat Clear Calc 52.92, Est GFR (MDRD) Af Amer 66, Est GFR (MDRD) Non-Af 54 L, BUN/Creatinine Ratio 27.1 H, Glucose 160 H, Calcium 8.5, Magnesium 2.7 H, Total Bilirubin 0.30, Direct Bilirubin 0.15, AST 65 H, ALT 46, Alkaline Phosphatase 33 L, Lactate Dehydrogenase 654 H, C-React Prot Ext Range 119.00 H, Total Protein 7.5, Albumin 2.8 L, Globulin 4.7 H, Albumin/Globulin Ratio 0.6 L 12/07/20 20:45: Total Creatine Kinase 335 H 12/07/20 20:45: B-Natriuretic Peptide 72.3 12/07/20 20:45: Procalcitonin 0.24 H 12/07/20 22:19: D-Dimer Quant (PE/DVT) 1.26 H* 12/08/20 04:50: WBC 5.6, RBC 4.57 L, Hgb 13.8, Hct 40.1, MCV 87.7, MCH 30.2, MCHC 34.4, RDW Std Deviation 40.2, RDW Coeff of Demetrio 12.5, Plt Count 290, MPV 9.6, Immature Gran % (Auto) 0.900, Neut % (Auto) 83.4 H, Lymph % (Auto) 9.6 L, [place] % (Auto) 5.9, Eos % (Auto) 0.0, Baso % (Auto) 0.2, Absolute Neuts (auto) 4.7, Absolute Lymphs (auto) 0.54 L, Nucleated RBC % 0 12/08/20 04:50: Sodium 137, Potassium 3.7, Chloride 104, Carbon Dioxide 27.0, Anion Gap 6, BUN 34 H, Creatinine 1.12, Estim Creat Clear Calc 68.04, Est GFR (MDRD) Af Amer 88, Est GFR (MDRD) Non-Af 72, BUN/Creatinine Ratio 30.4 H, Glucose 170 H, Calcium 8.0 L, Total Bilirubin 0.30, AST 59 H, ALT 44, Alkaline Phosphatase 33 L, Total Protein 6.9, Albumin 2.4 L, Globulin 4.5 H, Albumin/Globulin Ratio 0.5 L 12/08/20 06:19: MRSA (PCR) Negative 12/08/20 11:30: Urine Color Yellow, Urine Clarity Clear, Urine pH 6.5, Ur Specific [place] 1.015, Urine Protein 30 H, Urine Glucose (UA) Normal, Urine Ketones Negative, Urine Occult Blood Negative, Urine Nitrite Negative, Urine Bilirubin Negative, Urine Urobilinogen Normal, Ur Leukocyte Esterase Negative, Urine RBC 0 SEEN, Urine WBC 0 SEEN, Ur Squamous Epith Cells 0 SEEN, Urine Bacteria 0 SEEN, Urine Mucus 0 SEEN Micro: Microbiology 12/08/20 11:30 Urine, Clean Catch Legionella Antigen - Final 12/08/20 11:30 Urine, Clean Catch Streptococcus pneumoniae Antigen (M - Final Radiography Diagnostic Testing: Radiology Impression Chest CTA 12/08/20 00:05 IMPRESSION: No evidence of pulmonary embolism. Extensive multifocal Covid 19 pneumonia bilaterally. Mild cardiomegaly. Diffuse hepatic steatosis. Electronically Signed: Frantz Cedeno MD at 2:46 EDT Tel , Service support , Physical Exam Const alert, oriented x3, no apparent distress and healthy appearing General Appearance: cooperative, well kempt and well developed Orientation / Consciousness: awake, oriented to person, oriented to place and oriented to time HEENT normocephalic, head/scalp atraumatic and moist oral mucous membranes Head and Scalp: normocephalic Eyes PERRL, EOMs intact bilaterally and conjunctivae normal Neck nuchal rigidity, supple, no JVD, thyroid normal and no carotid bruits General: trachea midline Resp normal respiratory effort, no retractions and no use of accessory muscles Resp Narrative: Breath sounds are distant bilaterally Auscultation: Negative for rales, rhonchi or wheezes Cardio regular rate, regular rhythm, S1 normal heart sound, S2 normal heart sound, no murmurs, no rub and no gallops GI normal to inspection, nondistended, normoactive bowel sounds, soft to palpation, non-tender and non-distended Extremity no clubbing, cyanosis or edema Skin no rashes or lesions noted General Skin Exam: no breakdown Neuro oriented x3, CN's II-XII intact bilaterally, no focal motor deficits and no sensory deficits noted Sensorium / Orientation: awake and alert Speech: speech normal Psych thought process normal and affect normal Assessment & Plan Assessment/Plan (1) Pneumonia due to COVID-19 virus: PLAN: 1. COVID-19 pneumonia-continue present treatment-day #2 remdesivir, dexamethasone, and baricitinib #2 acute hypoxic respiratory failure secondary to COVID-19 pneumonia Charges/Coding Visit Charges Inpatient E&M: 89475 Subs Hosp L2
[2020-12-08] MEDS: 0.9% Saline Lock 10 ML Syringe IV (18:17)
[2020-12-08] MEDS: Ondansetron 4 MG/2 ML Vial IV (18:17)
--- NOTE | 2020-12-08 21:09 | CPS ---
Patient was place on airvo and settings were adjusted for comfort and proper oxygenation. Patient did not tolerate well. Patient states its to strong, it avina throat and is to much. Patient was placed on 45 liters and fio2 at 85% with 34 degrees celsius. Oxygen maintained at 93-97%. Patient wanted it off due to burning throat. Patient placed on 15 liter cannula only and is 91%. I did discuss with patient if oxygen demands increase or breathing worsen, we will hvae to use the airvo.
--- NOTE | 2020-12-08 23:00 | NURSING ---
RESPIRATORY AND RN ATTEMPTED TO GET PATIENT TO WEAR AIRVO AND BIPAP REFUSED BOTH, STATES CAN'T TOLERATE IT DUE TO HIS SINUS PROBLEMS AND DEVIATED SEPTUM. PLACED ON NON-REBREATHER 15L STATS 90-95%, RESPIRATORY CALLED DR PUGH AND UPDATED ABOUT PATIENT. WILL CONTINUE TO MONITOR.
[2020-12-09] VITALS (7 sets, daily range): BP systolic 0–155; BP diastolic 0–71; PULSE 0–112; RESP 0–38; TEMP 37.2; O2SAT 75–100
--- NOTE | 2020-12-09 00:29 | PN.HOSP_ITS ---
Hospitalist Note Patient with consistent hypoxia, significant difficulty with trialing air Vo secondary to deviated septum and sinus issues and patient not able to tolerate BiPAP. Do believe most of this is secondary to patient anxiety and inability to use these items; however, given ongoing issues with hypoxia in the mid 80s do feel patient is appropriate to transition the ICU for continued close monitoring. Will attempt trial again of both air Vo and BiPAP in the ICU but if patient remains hypoxic and unable to appropriately oxygenate may require intuba tion.
--- NOTE | 2020-12-09 01:04 | NURSING ---
RN ASKED PATIENT IF WANTED CALLED ABOUT BEING TRANSFERRED UP TO ICU TO GET CLOSER MONITORING, PATIENT STATES, NO I WILL CALL HER IN THE MORNING.
--- NOTE | 2020-12-09 02:33 | PCS.PANDOC ---
PANDEMIC DOCUMENTATION INITIATED: Date: 10/29/2020 Time: 190
--- NOTE | 2020-12-09 02:33 | NURSING ---
PATIENT TRANSFERRED TO ICU
--- NOTE | 2020-12-09 06:37 | NURSING ---
Medications of code are in code charting. Not added to MAR.
--- NOTE | 2020-12-09 18:18 | PCM.DEATH ---
Preliminary Cause of Preliminary Cause of Preliminary Cause of : Asystole secondary to PEA from hypoxic respiratory failure from COVID-19 pneumonia Date of Admission: 12/07/20 Date of : 12/09/20 Principle Diagnosis 1. COVID-19 pneumonia #2 acute hypoxic respiratory failure secondary to COVID-19 pneumonia #3 PEA secondary to acute hypoxic respiratory failure from COVID-19 pneumonia Problem List: Active and Suspected Problems (Updated 12/07/20 @ 16:[address] Epifanio Latif, DO) Pneumonia due to COVID-19 virus (Acute) Hypoxia (Acute) Acidosis, lactic (Acute) Hospital Course This 55-year-old white male was seen in the emergency room at [facility] with a chief complaint of shortness of breath over the past 2 days, patient tested positive for coronavirus approximately a week before, he was started on prednisone on 11/30/2020. Patient had not undergone vaccination for COVID-19. Work-up in the emergency room included a COVID-19 PCR which was positive, portable chest x-ray was obtained which showed bilateral lower lobe infiltrates, patient was admitted to ICU initially, patient underwent a CT of the chest in the early hours of 12/08/2020 which showed no evidence of pulmonary emboli, he was seen in consultation by pulmonary medicine. Patient was placed on remdesivir and Decadron, he received Lovenox subcu twice a day. On 12/08/2020, patient was felt to be stable for transfer to PCU. In the early hours of 12/09/2020, patient became noncompliant with his BiPAP, he was felt to be appropriate to transition back to the ICU for continued close monitoring, while in the ICU, patient pulled off his Airvo and try to get out of bed and slid to the floor. The staff in the ICU immediately responded and it was noted that the patient was pulseless and CODE BLUE was called, patient was transition back into his bed and underwent intubation and continued CPR. Atropine was administered, the patient was noted to be in PEA and epinephrine was administered along with 2 doses of Henry-Synephrine. Patient remained in asystole however after CPR, he was finally pronounced at 4:30 AM on 12/09/2020. The cause of was PEA secondary to hypoxia from COVID-19 pneumonia.
== END 2020-12-09 04:30 | DRG 177 ==
LOC: ED 16:56 → ICU 17:27 → PCU 12-08 12:43 → ICU 12-09 04:41
PROVIDERS: Admitting Provider Internal Medicine; Emergency Provider Emergency Medicine; Visit Provider Internal Medicine
DX: U07.1 COVID-19 (principal); J12.82 Pneumonia due to coronavirus disease 2019; J96.01 Acute respiratory failure with hypoxia; B35.6 Tinea cruris; I10 Essential (primary) hypertension; J34.2 Deviated nasal septum; R00.1 Bradycardia, unspecified; I46.9 Cardiac arrest, cause unspecified; Z28.3 Underimmunization status; Z87.891 Personal history of nicotine dependence
CPT/HCPCS: 31500; 71045; 71275; 80053; 80076; 81001; 82550; 83605; 83615; 83735; 83880; 84145; 85025; 85379; 85384; 85610; 85730; 86140; 87040; 87086; 87449; 87635; 87641; 92950; 93005; 94002; 94640; 94660; 94667; 99251; 99285; J7030; J7050; Q9967; U0005; A4216; G0463; J2405; U0003